=== PATIENT | male | born 1960 | race Caucasian/White ===

== ENCOUNTER 2020-03-13 23:19 | Emergency (ER) | payer OTHER ==
[2020-03-14] MEDS ORDERED: NORCO 5-325 TA1 EACH PO ×2 (03:09→10:29)
== END 2020-03-14 03:21 | disposition home or self-care (01) ==
LOC: FER 23:19
DX: S82.302A Unspecified fracture of lower end of left tibia, initial encounter for closed fracture (principal); E11.22 Type 2 diabetes mellitus with diabetic chronic kidney disease; N18.9 Chronic kidney disease, unspecified; Z79.4 Long term (current) use of insulin; Z79.899 Other long term (current) drug therapy; Z79.82 Long term (current) use of aspirin; W19.XXXA Unspecified fall, initial encounter
CPT/HCPCS: 73590; 96374; 96375; 96376; J2405; J3010